=== PATIENT | female | born 1955 | race Caucasian/White ===

== ENCOUNTER 2018-03-18 22:19 | Emergency (ER) | payer MEDICAID ==
--- NOTE | 2018-03-18 23:11 | EDPHY ---
H & P Time Seen by Provider: 03/18/18 23:08 HPI/ROS: Chief complaint. Shingles HPI. 62-year-old female who was seen in our emergency department on March 06 with diagnosis of shingles. She had already had 5 or 6 days of rash at that point. She was treated with oral acyclovir. She saw her PCP who told her that she was out of the window for treatment with antivirals and to discontinue this. The rash has resolved though she has 2 small erythematous dots under her right breast is concerned that it is coming back. She is being treated with gabapentin and hydrocodone. No fever. No cough shortness of breath. She has a does have prediabetes and checks her blood sugar and it is been normal. ROS Constitutional. no fever/chills, no weakness Eyes. no problems with vision ENT. no sore throat, no nasal drainage Cardiovascular. no chest pain Respiratory. no shortness of breath, no cough Abdominal. no abdominal pain, no nausea/vomiting, no diarrhea . no problems urinating MS. no calf pain/swelling, no neck/back pain, no joint pain Skin. Right chest wall pain under breast after shingles. Lymph. no swollen glands Neuro. no headache, no dizziness, no difficulty walking or with speech Past Medical/Surgical History: Pre diabetes, hypertension, dyslipidemia Social History: , nonsmoker, no alcohol Smoking Status: Former smoker Physical Exam: General Appearance: Alert well-developed female mild distress vital signs are stable Eyes: Pupils equal and round no pallor or injection. ENT, Mouth: Mucous membranes are moist. Respiratory: There are no retractions, lungs are clear to auscultation. Cardiovascular: Regular rate and rhythm. Gastrointestinal: Abdomen is soft and nontender, no masses, bowel sounds normal. Neurological: Awake and alert, sensory and motor exams grossly normal. Skin: Under the right breast with a shingles were there are 2 approximately 1 mm in diameter macular erythematous spots. There is nothing to suggest vesicles or infection. I do not think this is recurrent shingles Musculoskeletal: Neck is supple nontender. Extremities symmetrical, full range of motion. Psychiatric: Patient is oriented X 3, there is no agitation. Constitutional: Initial Vital Signs Temperature (C) 37.4 C 03/18/18 22:22 Heart Rate 72 03/18/18 22:22 Respiratory Rate 16 03/18/18 22:22 Blood Pressure 182/80 H 03/18/18 22:22 O2 Sat (%) 93 03/18/18 22:22 O2 Delivery Mode Room Air Allergies/Adverse Reactions: No Known Allergies Allergy (Unverified 09/08/14 20:57) Home Medications: Medication Instructions Recorded Metoprolol Succinate Xr [Toprol Xl 25 mg PO DAILY 12/10/14 25 mg (*)] metFORMIN HCL [Glucophage 500 mg 500 mg PO BIDMEAL 12/10/14 (*)] Albuterol Sulfate [Albuterol 1 - 2 puffs IH Q4H PRN #1 mdi 12/12/14 Inhaler Hfa] guaiFENesin [Mucinex 600 MG (*)] 1,200 mg PO BID #0 tab.er 12/12/14 guaiFENesin/CODEINE PHOS 10 ml PO Q6 PRN #120 ml 12/12/14 [Robitussin AC] levOFLOXACIN [levAQUIN] 750 mg PO DAILY #3 tab 12/12/14 Acyclovir 800 mg PO 5XD #35 tab 03/06/18 Hydrocodone/Acetaminophen 1 - 2 each PO Q4-6PRN PRN #10 03/06/18 [Hydrocodon-Acetaminophen 5-325] tablet Lidocaine 4%/Menthol 1% [Icy Hot 1 patch TD DAILY #12 patch 03/18/18 Lidocaine/Menthol 4%/1% Patch (*)] Medical Decision Making Procedures: Lidocaine patch ED Course/Re-evaluation: Patient and I discussed treatment plan including criteria turn and importance of follow-up and further evaluation. She expresses understanding and agreement Differential Diagnosis: This appears to be post herpetic neuralgia. She presented 5-6 days after the rash began and her regular physician discontinued antiviral therapy. Departure - Departure Disposition: Home, Routine, Self-Care Clinical Impression: Post herpetic neuralgia Condition: Good Instructions: Shingles (ED) Additional Instructions: Lidocaine patch to sore area each day. Change the patch every 24 hr. Increase gabapentin to 2 pills 3 times daily (600 mg total three times daily). Return for worsening symptoms. Recheck in 3-4 days for continuing symptoms Referrals: NONE *PRIMARY CARE P,. [Primary Care Provider] - As per Instructions [facility]. [Clinic] - 3-4 days, if not improved Prescriptions: Lidocaine 4%/Menthol 1% [Icy Hot Lidocaine/Menthol 4%/1% Patch (*)] 1 patch TD DAILY #12 patch
[2018-03-18] MEDS ORDERED: LIDOCAINE 4%/MENTHOL 1% PATCH TD ONE (23:25)
[2018-03-18 23:43] VITALS: BP 134/75
[2018-03-19] MEDS ORDERED: PATCH REMOVAL 1 EA PATCH TD SCH (21:00)
== END 2018-03-18 23:42 | disposition home or self-care (01) ==
DX: B02.29 Other postherpetic nervous system involvement (principal); Z87.891 Personal history of nicotine dependence; I10 Essential (primary) hypertension; R73.03 Prediabetes; E78.5 Hyperlipidemia, unspecified